=== PATIENT | female | born 1965 | race Caucasian/White ===

== ENCOUNTER 2018-12-02 08:22 | Outpatient (RCR) | payer MEDICAID, SELFPAY | END 2018-12-12 23:59 | LOC: WC 08:22 | PROVIDERS: Family Provider Family Medicine; PCP Family Medicine; Visit Provider Nurse Practitioner Family | DX: Z09 Encounter for follow-up examination after completed treatment for conditions other than malignant neoplasm (principal) ==

== ENCOUNTER 2022-05-02 08:00 | Outpatient (RCR) | payer MEDICARE, SELFPAY ==
--- NOTE | 2022-05-02 09:05 | BH.SGPN.GN ---
Behaviors/Verbalizations/Mental Status: []Eye contact good, casually dressed, motor activity appropriate, speech normal rate and tone, mood depressed and anxious, constricted affect, thoughts linear and intact, no evidence of delusions or hallucinations. Reviewed pt's symptom tracker, pt suicidal ideation within established baseline, denies any plan or intent. Future oriented. Client Response/Progress/Benefit: []Pt first day in IOP tx. She responded well to session, attentive and listening to fellow participants as they processed with the group. Opted not to process with group. Nodding throughout as others shared and appeared to benefit from the supportive structure and encouragement of the group. Recommended continued IOP tx to improve mood stability, increase healthy coping repertoire, and prevent decompensation. Narrative Note: []
--- NOTE | 2022-05-02 10:14 | BH.COMM ---
Communication Note - Communication with Client Communication Note: Met with pt to complete initial paperwork. No significant changes since pre-admission screening. Completed [place] Suicide Screening. Moderate risk. Pt reports having thoughts of killing herself daily within the last month, but denies intent. Pt reports the thoughts are always very brief and pt feels she can control them. No active SI today. Pt has history of two attempts both more than 15 years ago. Therapist did lethal means counseling and discussed the importance of removing any weapons from her home which pt agreed to do. Contracts for safety and reports her aunt is pt's biggest protective factor. Consulted with Dr. Woods with plan to admit to IOP level of care with dx of MDD, recurrent, severe without psychosis F 33.2
--- NOTE | 2022-05-02 10:15 | BH.SGPN.GN ---
Behaviors/Verbalizations/Mental Status: []Pt alert and oriented, casually dressed and groomed. Eye contact good. Motor activity appropriate. Speech within normal limits. Affect flat, mood depressed. Thoughts linear, logical, no signs of hallucinations or delusions. Client Response/Progress/Benefit: []Pt responded well to session AEB taking notes and listening attentively to others. Group discussed the benefits of managed anger and anger as a secondary emotion. Pt often nodding at peers? comments on benefits of anger. ?Pt completed worksheet on anger triggers and personal warning signs of anger. Pt did not share her triggers, but pt was attentive and taking notes. Appeared to benefit from increased knowledge of the anger cycle as well as personal triggers. First day of IOP tx. Will continue IOP tx to prevent decompensation, increase use of healthy coping skills, and maintain safety. Narrative Note: []
--- NOTE | 2022-05-02 11:15 | BH.SGPN.GN ---
Behaviors/Verbalizations/Mental Status: []Client alert and oriented, casually dressed and groomed. Eye contact fair. Motor activity appropriate. Speech within normal limits. Affect constricted, mood depressed. Thoughts linear, logical, no signs of hallucinations or delusions. Client Response/Progress/Benefit: []Pt was engaged throughout AEB contributing to group discussion and self-reflection. Group finished processing cues to anger worksheet. Pt contributed as group brainstormed healthy coping skills for better managing anger which included: music, walking/exercise, changing the environment, communicating with supports, and journaling. Pt reported she would like to work on skills of music and belly breathing to help manage anger responses. Pt appeared to benefit from identifying different techniques to manage anger as well as gaining awareness of potential consequences of unmanaged anger. Will continue IOP tx to increase healthy coping, challenge distorted thoughts, and prevent decompensation.
--- NOTE | 2022-05-03 09:03 | BH.SGPN.GN ---
Behaviors/Verbalizations/Mental Status: []Eye contact poor, casually dressed, motor activity appropriate, speech normal rate and tone, mood depressed and anxious, constricted affect, thoughts linear and intact, no evidence of delusions or hallucinations. Reviewed pt's symptom tracker, suicidal ideation within baseline, pt denies plan, or intent as of this date. Client Response/Progress/Benefit: []Pt passive participant AEB not providing input throughout and appearing anxious. Pt did appear to listen to others check-in. Pt chose to not check-in this morning. Recommended continued IOP tx to increase healthy coping skills, promote anxiety management, as well as prevent decompensation.
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
--- NOTE | 2022-05-03 11:10 | BH.SGPN.GN ---
Behaviors/Verbalizations/Mental Status: []Pt alert and oriented, casually dressed and groomed. Eye contact fair.. Motor activity appropriate. Speech within normal limits. Affect constricted, mood depressed and anxious. Thoughts linear, logical, no signs of hallucinations or delusions Client Response/Progress/Benefit: []Pt responded well to session AEB completing the resilience worksheet provided. Reports belief they already use resilience trait of??self-awareness.? Pt shared these traits will help pt overcome current stressors. Pt stated they would like to continue to develop resilience trait of ?taking care of yourself? 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 Pt seemed to benefit from discussing strategies for improving personal resilience and identifying resilience traits pt already possesses. Pt?s second day of IOP tx. Will continue IOP tx to prevent further decompensation, improve daily functioning, and maintain safety. Narrative Note: []
[2022-05-03 11:29] VITALS: BP 164/71; PULSE 60
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
--- NOTE | 2022-05-03 13:14 | BH.DR.ITP ---
Initial Treatment Plan Patient Information Visit Information: ADMISSION DATE: EXPECTED LOS: 4-6 weeks Problems/Symptoms Problem #1:: Depression Symptom:: Sadness, hopelessness, anhedonia, guilt, low energy, decreased concentration, passive thoughts of , passive to active suicidal ideation Problem #2:: Anxiety Symptom:: Worry, rumination, flashbacks, reexperiencing, avoidance
--- NOTE | 2022-05-08 09:05 | BH.SGPN.GN ---
Behaviors/Verbalizations/Mental Status: []Pt alert and oriented, casually dressed and groomed. Eye contact good. Motor activity appropriate. Speech within normal limits. Affect flat-tearful, mood depressed. Thoughts linear, logical, no signs of hallucinations or delusions. Reviewed pt?s symptom tracker, no risk for suicidal ideation, plan, or intent as of 05/08/22 Client Response/Progress/Benefit: []Pt responded somewhat well to session, attentive, but pt declined to share. Pt reports feeling anxious sharing in group, so pt is still getting used to process group. Pt did seem to connect with peers during their check-ins AEB pt nodding and verbalizing connection. Pt's progress is limited due to pt recently starting IOP and limited engagement, but this is likely to improve as pt gets more comfortable. Pt will continue IOP tx to prevent decompensation, monitor mood, and increase healthy coping skills. Narrative Note: []
--- NOTE | 2022-05-08 10:05 | BH.SGPN.GN ---
Behaviors/Verbalizations/Mental Status: [] Client alert and oriented, casually dressed and groomed. Eye contact good. Motor activity appropriate. Speech within normal limits. Affect congruent, mood euthymic. Thoughts linear, logical, no signs of hallucinations or delusions. Client Response/Progress/Benefit: [] Client responded session by being attentive and taking notes. Client did not share input or reflect with group. Group identified the benefits of change which included: personal growth, positive perspective, increased confidence and better mental health. Worked with the group to identify barriers to change, which included: uncomfortable emotions such as anxiety, lack of awareness, low energy, support system, and negative thinking. Client attentive in activity where they identified and discussed the emotions related to change. Appear to benefit from increased awareness and understanding of emotions, benefits, and barriers related to change. Will continue IOP tx to continue to self confidence, reduce negative thinking patterns, and improve overall functioning. Narrative Note: []
--- NOTE | 2022-05-08 11:13 | BH.SGPN.GN ---
Behaviors/Verbalizations/Mental Status: [] Client alert and oriented, casually dressed and groomed. Eye contact good. Motor activity appropriate. Speech within normal limits. Affect congruent, mood euthymic and depressed. Thoughts linear, logical, no signs of hallucinations or delusions. Client Response/Progress/Benefit: [] Client responded well to session, attentive AEB participating in activity and being attentive/taking notes during discussion. Group processed activity to relate the strategies used to overcome barriers in the activity to managing change in own life. Discussed and set SMART goal in group as it relates to change group members are wanting to make. Client identified she would like to focus on managing her emotions better with minimizing crying. Identified being in the contemplation stage. Client stated her goal is to set time aside to pray each evening before bed. Appeared to benefit from identifying a small goal to work towards. Client will continue IOP tx to prevent decompensation, gain healthy coping skills, and increase emotional regulation skills. Narrative Note: []
--- NOTE | 2022-05-10 09:03 | BH.SGPN.GN ---
Behaviors/Verbalizations/Mental Status: []Pt alert and oriented, casually dressed and groomed. Eye contact good. Motor activity appropriate. Speech within normal limits. Affect flat, mood depressed. Thoughts linear, logical, no signs of hallucinations or delusions. Reviewed pt?s symptom tracker, no risk for suicidal ideation, plan, or intent as of 05/10/22 Client Response/Progress/Benefit: []Pt responded somewhat well to session, tearful, but sharing when prompted. Pt did not share an emotion with the group today, but pt reports she feels thankful for the program. Pt was brief with her check-in but did share a stressor right now is adjusting to her medications. Pt appeared to benefit from connecting with peers and pt is still adjusting to the group environment. Pt will continue IOP tx to prevent decompensation, improve distress tolerance skills, and reduce SI. Narrative Note: []
--- NOTE | 2022-05-10 10:05 | BH.SGPN.GN ---
Behaviors/Verbalizations/Mental Status: [] Client alert and oriented, casually dressed and groomed. Eye contact fair to good. Motor activity appropriate. Speech normal, quiet. Affect constricted, mood depressed and anxious. Thoughts linear, logical, no signs of hallucinations or delusions. Client Response/Progress/Benefit: []Client reports she is still getting adjusted to group environment. Was an engaged participant AEB client listening and taking notes throughout, participated in small group discussion. Attentive during psychoeducation on communication styles. Assisted group with identifying barriers of effective communication which included: assuming, shutting down, dominating the conversation, and using text to communicate. Benefited from increased awareness of different communication barriers, styles, and the importance of communicating effectively to improve mental wellness. Will continue IOP tx to increase overall functioning, increase self-care, and prevent decompensation. Narrative Note: []
--- NOTE | 2022-05-10 11:43 | PCM.BH.PN_ITS ---
Progress Note Progress Note: History of Present Illness/Interim History: Patient is a 56-year-old single female with a history of depression and PTSD who is seen in follow-up at the [facility] behavioral health IOP program. I last saw the patient 1 week ago and at that time Effexor XR was started and doxepin was prescribed for sleep. The patient is tolerating the medication well and has been taking it almost 1 week now. She feels that her sleep is much better at 6 hours a night due to the doxepin. Her mood is still depressed as it is only been 1 week. She does admit that she did empty the bullets out of the gun she owns to make it even less likely that she would ever consider using it although she states she would never kill herself with a gun for reasons stated in the last visit. She is tolerating the Effexor but feels that it may make her legs feel a little weaker. She is still struggling with the complex regional pain syndrome and remains also anhedonic. She also has depressed mood, sadness, hopelessness, worthlessness, low motivation, anhedonia, decreased appetite with some weight loss. Sleep has improved though from 2 to 3 hours overnight to 6 hours overnight. She feels better rested due to this improved sleep. She still has passive thoughts of and passive to active suicidal ideation with no definite plan. She feels still that her moises is protective against suicide. She denies homicidal ideation, hallucinations, delusions or symptoms of john ever. Current Psychiatric Medications: [] Melatonin for sleep and vitamin D. Lyrica and oxycodone for pain only. Takes oxycodone rarely and last took it a month ago. She has been on Effexor XR 37.5 mg daily for 1 week now. And doxepin 10 mg p.o. nightly for sleep (x1 week). Mental Status Examination: [] The patient is a 56-year-old female who is casually dressed and groomed with good hygiene. She has no psychomotor agitation or retardation. History was easier to obtain at this visit and she was much less vague. Eye contact is good and speech is normal rate and rhythm and fluent with no pressure. Patient is cooperative during the interview. Mood is depressed. Affect is constricted and tearful at times. Thought process is goal-directed and organized. Thought content: There remains evidence of passive thoughts of and daily passive and active suicidal ideation with no definite plan. There is no evidence of homicidal ideation, hallucinations, delusions or symptoms of john. Reality testing is intact. Intelligence is above average. Judgment is intact. Insight is fair to good. Diagnoses: [] 1. Major depressive disorder, recurrent, severe without psychosis 2. PTSD 3. Cluster B traits 4. Complex regional pain syndrome and left lower leg 5. Primary support and health issues Plan: [] The patient will continue the IOP program at [facility] as the structure, support, education and group therapy will hopefully prevent worsening of the patient's symptoms which could require hospitalization. She felt safe during the interview and if it anytime she does not feel safe she agrees to let us know or go to the emergency room. The patient's labs were reviewed with her and the TSH and vitamin D and thyroid panel were normal. The patient agrees to increase her Effexor XR to 75 mg p.o. daily. Prescription is sent in for this. She will continue to follow-up with her outpatient providers and I will see the patient in follow-up in 2 weeks. She is also encouraged to cut down on her marijuana use.
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
--- NOTE | 2022-05-11 10:10 | BH.SGPN.GN ---
Behaviors/Verbalizations/Mental Status: [] Eye contact is good. Motor activity is appropriate. Appearance is casual. Speech is Appropriate. Mood is depressed. Affect is congruent. Thoughts are linear and logical. No evidence of psychosis. Client Response/Progress/Benefit: [] Pt participated at times during group discussions. Attentive during psychoeducation. Attentive as peers shared their insights on the definition of anxiety. Along with peers worked together to identify the benefits of anxiety which included; motivates us, helps us prepare, helps us change and grow, helps us identify danger and can keep us safe. Attentive during discussion on how anxiety impacts one physically (increased heart rate, sweaty hands, etc), cognitively (poor concentration, fogginess, catastrophizing, etc), and behaviorally (avoidance, anger, safety behaviors, etc). Completed worksheet on how anxiety impacts her physically, cognitively, and behaviorally. Benefited from increase insight into anxiety's benefits and detriments. Will continue in IOP to maintain safety, prevent decompensation, increase healthy coping skills, and to improve functioning. Narrative Note: []
--- NOTE | 2022-05-11 11:15 | BH.SGPN.GN ---
Behaviors/Verbalizations/Mental Status: []Pt alert and oriented, casually dressed and groomed. Eye contact good. Motor activity appropriate. Speech within normal limits. Affect constricted, mood anxious and depressed. Thoughts linear, logical, no signs of hallucinations or delusions. Client Response/Progress/Benefit: []Pt was a semi-active participant in group discussion AEB remaining mostly passive in discussion but taking notes throughout group and listening attentively to others. Attentive during psychoeducation on mindfulness and ways to utilize mindfulness techniques to improve anxiety management. The group practiced guided meditation during session. Engaged and attentive during group brainstorm of healthy anxiety reduction skills. Appeared to benefit from practicing in the moment coping skills and increasing repertoire of anxiety management skills. Pt selected wanting to work on using skills of music and belly breathing more consistently. Pt will continue IOP tx to promote continued use of healthy coping skills, further improve communication with supports, and prevent decompensation. Narrative Note: []
== END 2022-05-12 23:59 ==
LOC: BHIOP 08:00
PROVIDERS: PCP Family Medicine; Referring Provider Psychiatry & Neurology Psychiatry; Visit Provider Psychiatry & Neurology Psychiatry
DX: F33.2 Major depressive disorder, recurrent severe without psychotic features (principal); F43.10 Post-traumatic stress disorder, unspecified; G90.522 Complex regional pain syndrome I of left lower limb; Z79.899 Other long term (current) drug therapy
CPT/HCPCS: S9480; 90834; 90853

== ENCOUNTER → 2022-05-03 | Outpatient (CLI) | payer MEDICARE, SELFPAY ==
[2022-05-03 13:14] LABS: Free T3 2.7 pg/mL (2.18-3.98); T4 Free Direct 0.93 ng/dL (0.76-1.46); T4 Total, Thyroxin 8.6 ug/dL (4.8-13.9)
== END | disposition home or self-care (01) ==
LOC: LAB 12:15
PROVIDERS: PCP Family Medicine; Referring Provider Psychiatry & Neurology Psychiatry; Visit Provider Psychiatry & Neurology Psychiatry
DX: Z09 Encounter for follow-up examination after completed treatment for conditions other than malignant neoplasm (principal); E55.9 Vitamin D deficiency, unspecified
CPT/HCPCS: 36415; 82306; 84436; 84439; 84443; 84481

== ENCOUNTER 2022-05-15 08:20 | Outpatient (RCR) | payer OTHER, SELFPAY ==
[2022-05-13 02:22] VITALS: BP 164/71; PULSE 60
--- NOTE | 2022-05-15 09:00 | BH.SGPN.GN ---
Behaviors/Verbalizations/Mental Status: [] Eye contact poor. Motor activity appropriate. Speech within normal limits. Affect constricted, mood dysthymic. Thoughts linear, logical, no signs of hallucinations or delusions. Reviewed client?s symptom tracker, no risk for suicidal ideation, plan, or intent. Client Response/Progress/Benefit: [] Client responded well to session, attentive and listening to fellow participants as they processed with the group. Client shared mental health win as not crying yesterday which she stated was the first time in awhile. Client stated she thinks the medication is starting to help her with feeling less emotional and not having uncontrollable crying. Client noted continued stressor as caring for her aunt. Seemed to benefit from support from peers. Recommended continued IOP tx to increase healthy coping, challenge distortions, and prevent decompensation.
--- NOTE | 2022-05-15 10:10 | BH.SGPN.GN ---
Behaviors/Verbalizations/Mental Status: []Pt alert and oriented, casually dressed and groomed. Eye contact poor-head down at times. Motor activity appropriate. Speech within normal limits. Affect flat, mood depressed. Thoughts linear, logical, no signs of hallucinations or delusions. Client Response/Progress/Benefit: []Pt receptive to session AEB taking notes and completing the worksheet. Worked with group to brainstorm the positive and negative aspects of stress on physical and mental health. Group did well to identify the benefits of stress as well as the impact of distress on performance, relationships, and mental health. Pt identified their personal top stressors as: taking care of her aunt, dealing with her neighbor who is disrespectful, and managing her mental health. Pt reports when the stress overflows, pt reacts with crying, self-harming, and urges to use. Pt seemed to benefit from increased awareness of current stressors and impact stress has on mental health. Recommended to continue IOP tx to prevent decompensation, improve distress tolerance skills, and gain social support. ?? Narrative Note: []
--- NOTE | 2022-05-15 11:00 | BH.SGPN.GN ---
Behaviors/Verbalizations/Mental Status: [] Eye contact is good. Motor activity is appropriate. Appearance is casual. Speech is Appropriate. Mood is depressed/irritable. Affect is congruent. Thoughts are linear and logical. No evidence of psychosis. Client Response/Progress/Benefit: [] Pt participated at times during group discussions and experiential activity. Attentive during psychoeducation on the 4 A's (Avoid, adapt, alter, accept) of coping with stress as well as strategies to identify stressors in which one has no control, little control, or a great deal of control over. Shared that he would benefit most from working on adapt and accept in regards to the 4 A's of coping with stress. Was able to identify the connection between the experimental activity and utilization of stress management skills. Benefited from increased awareness of stress management strategies. Will continue in IOP to maintain safety, prevent decompensation, and to improve functioning. Narrative Note: []
--- NOTE | 2022-05-17 09:00 | BH.SGPN.GN ---
Behaviors/Verbalizations/Mental Status: []Eye contact good, casually dressed, motor activity appropriate, speech normal rate and tone, mood euthymic, congruent affect, thoughts linear and intact, no evidence of delusions or hallucinations. Reviewed pt's symptom tracker, pt suicidal ideation within established baseline, denies any plan or intent. Future oriented. Pt will connect with IOP therapist today as well. Client Response/Progress/Benefit: []Pt responded well to session, attentive and willing to process with group which is progress as pt struggles with connecting with others and social anxiety. Identified current mental health win as gaining some psychoeducation on caregiver burnout, noting she connects with several of the common sx. Pt reflected that the knowledge had been helpful, but is also a stressor as she does not have much support to aid in caregiving for her aunt. Receptive of suggestions provided by the group and ways to increase self-care. Additional win noted as a reduction in crying spells which she attributes to medication changes. Pt appeared to benefit from group support and encouragement. Continues to display progress in engagement in group and willingness to try applying skills learned in tx. Recommended continued IOP tx to continue to improve self-care, reduce isolation, as well as prevent decompensation. Narrative Note: []
--- NOTE | 2022-05-17 10:10 | BH.SGPN.GN ---
Behaviors/Verbalizations/Mental Status: [] Eye contact is good. Motor activity is appropriate. Appearance is casual. Speech is Appropriate. Mood is depressed/irritable. Affect is congruent. Thoughts are linear and logical. No evidence of psychosis. Client Response/Progress/Benefit: [] Pt was an active participant in group discussion. Attentive during psychoeducation on the CBT [place] (Thoughts, Behaviors, Emotions). Engaged in small group session in which members identified common thoughts, emotions, and actions associated with an event associated with social anxiety. Completed worksheet in which pt identified a thought that is keeping him stuck or is in obstacle to increased mental wellness. The thought that pt identified was I'm alone. Pt got tearful [facility] though group and stated I just have to go home. Another program therapist talked with pt and completed an individual session to further address her triggers and functioing. Benefited from increased awareness of the basis of CBT therapy as well as thoughts are impacting pt' progress. Will continue in IOP to maintain safety, prevent decompensation, and to increase healthy coping skills. Narrative Note: []
--- NOTE | 2022-05-17 11:10 | BH.SGPN.GN ---
Behaviors/Verbalizations/Mental Status: []Pt alert and oriented, casually dressed and groomed. Eye contact fair. Motor activity appropriate. Speech within normal limits. Affect congruent, mood depressed. Thoughts linear, logical, no signs of hallucinations or delusions. Client Response/Progress/Benefit: []Pt responded well to session, contributing to discussion when prompted, and attentive throughout discussion. Pt identified a negative thought that has kept them stuck. Pt's thought was I?m alone. Pt reported when they think this way, they isolate and convinces herself that she will always be alone. Pt worked to reframe the thought by finding more rational, realistic ways to look at the thoughts and then processed within group setting. Pt reframed the thought to ?I?m not alone at IOP.? Pt shared she struggles to believe this and pt worries about what will happen when she graduates from IOP. Pt appeared to benefit from practicing challenging negative thinking. Pt will continue IOP tx to prevent decompensation, increase distress tolerance skills, and maintain safety. ? Narrative Note: []
--- NOTE | 2022-05-17 12:12 | BH.MDN_ITS ---
Multi-Disciplinary Note - Note 30-min Individual Time Started:: 10:30 Date: 05/17/22 Purpose of session/treatment goals addressed:: Pt got tearful during 2nd group when discussed her support/social network and states I just have to go. She got up and walked towards the exit. Pt was agreeable to talk with this therapist to process before she left. Eye Contact:: Good Motor Activity:: Appropriate Appearance:: Casual Speech:: Appropriate Mood:: Anxious, Depressed Affect:: Flat Thoughts:: Linear, Logical Staff Interventions:: completed risk assessment / safety planning, other - allowed pt to vent her distress which was beneficial. Client Response:: Pt states that she felt overwhelmed and anxious during group stating I don't feel like anyone in my social group is my age ? I pull everyone into my emotional blackhole. Unclear what group activity, topic, or comment triggered her negative thoughts. Pt discussed feeling burned out and isolated. Has struggled to maintain consistent social relationships. Believes that she overwhelms others with her struggles, emotions, and problems. Insight on this and how improved communication skills could be beneficial ( knowing what to share, when she is oversharing, and strategies to maintain relationships). She reports being overwhelmed with her caregiver role and appears to spend all day/every day with her aunt. Her only respite is IOP stating I love the 3 hours I get to be away and work on myself. Aunt is also a trigger at times as she is very high strung and remains patient of previous trauma. Pt met with her aunt's early morning babysitter yesterday who suggested AL or NH, however pt does not want to pursue this option. We explored this briefly however session focused on increasing respite and self-care which pt agreed would be helpful. Challenged stigma/myths about self-care and provided education on it's role in wellness. Pt identified self-care options and agreed to research additional ways to get respite. Pt reported feeling much better after processing with therapist and requested to return to group rather than head home. Risks/Concerns:: Pt denies any active suicidal ideations, plan, or intent of as 05/17/22. Reports daily fleeting thoughts of ; however, denies any active plan or intent. Reports her and her moises as primary protective factors. Pt shared she is not sure she would go to [facility] if she completed suicide which prevents her from doing so. These daily fleeting thoughts of appear to be her baseline for the past several months. No acute changes in frequency, intensity, or severity of these thoughts in the past 24 hours. Progress Toward Goals/Plan:: Pt requested to return to group. Benefited from space to process and reframe overwhelming thoughts. Responded well to counseling interventions. She mentioned several times that IOP has been helpful not only for learning skills but also for respite from caregiving roles as well as support/social aspects. In the moment today was overwhelmed and require assistance and guidance to use coping skills, which ultimately proved beneficial. Will continue in IOP to maintain safety, increase healthy coping skills, and to stabilize mood. Time Stopped:: 11:00
--- NOTE | 2022-05-19 15:37 | BH.MDN_ITS ---
Multi-Disciplinary Note - Note 60-min Individual Time Started:: 08:32 Date: 05/19/22 Purpose of session/treatment goals addressed:: Purpose of session was to discuss treatment plan goal #1, including a discussion on Caregiver fatigue/burnout. Eye Contact:: Good Motor Activity:: Appropriate Appearance:: Casual Speech:: Appropriate, Soft Mood:: Anxious, Depressed Affect:: Congruent Thoughts:: Linear, Logical, No evidence of hallucinations/delusions noted Staff Interventions:: thought challenging, motivational interviewing, psychoeducation on: - self-care and caregiver fatigue, goal setting Client Response:: Pt receptive of arriving early for groups today to meet with therapist. Shared she has not yet been to bed as she has been experiencing increased difficulties with falling asleep. Shared spending much of the night [place] t[place] in bed thinking, which then impacts her mood and makes it harder to self- regulate when caregiving for her aunt. Pt discussed a recent conversation with a home health geriatric social worker who suggested pt may be experiencing caregiver burnout/fatigue. Pt reports connecting with this and feeling as though the past year of caregiving for her aunt has been more difficult than ever before. Discussed feeling more triggered by the type of care she is required to provide her aunt as it often triggers past trauma but feels obligated to do so. Expressed that since beginning IOP tx she has been making progress with establishing firmer boundaries with her aunt and feeling less pressed to do every task for her. Noted the geriatric social worker had presented the option of placing her aunt in an assisted living home; however, pt is adamantly opposed to this. Did however agree that she has felt less depressed since spending less time in the home while attending tx. Receptive of discussion on ways to continue to incorporate time for self-care outside of the home when not attending IOP tx. Pt shared she has wanted to attend a local open-sarah performance in her area, as well as been considering spending more time outdoors. Encouraged to engage in one of these activities this weekend. Shared some guilt about leaving her aunt to do so but was able to recognize the importance of caring for herself to be a more effective caregiver for her aunt. Shared additionally wanting to work on ways to have more appropriate conversations with others as she feels she often ?trauma dumps? due to not knowing what to talk about. Discussed how this has influenced her ability to make strong social connections in the past and feels working on interpersonal communication would also aid in improving overall emotional wellness. Pt reported wanting ot return home following session to rest. Risks/Concerns:: Pt denies any active suicidal ideations, plan, or intent of as 05/19/22. Reports daily fleeting thoughts of ; however, denies any active plan or intent. Future oriented and protective factors noted. Progress Toward Goals/Plan:: Progress noted AEB pt reports of improved willingness to take time for herself and begin practicing self-care. Additional progress noted in pt report of fewer crying spells and improved ability to set boundaries without guilt when caring for her aunt. Continues to report struggling with significant negative core beliefs, depression, and social anxiety. However, continues to report receptivity to applying skills she is learning in IOP tx and openness to challenging her perspective. Will continue in IOP to maintain safety, increase healthy coping skills, and to stabilize mood.
--- NOTE | 2022-05-22 09:05 | BH.SGPN.GN ---
Behaviors/Verbalizations/Mental Status: [] Eye contact good. Motor activity appropriate. Speech within normal limits. Affect constricted, mood anxious and depressed. Thoughts linear, logical, no signs of hallucinations or delusions.Reviewed client's symptom tracker, pt suicidal ideation within established baseline, denies any plan or intent as of 05/22/2022. Client Response/Progress/Benefit: [] Client responded to session, attentive and willing to process with group. Client tearful and was brief when sharing current mental health wins and stressor. Shared wins of being in recovery and still participating in program. Current stressor noted as feeling tired and drained. Client appeared to benefit from group support and encouragement. Recommended continued IOP tx to continue to improve use of coping skills, promote mood stability, as well as prevent decompensation. Narrative Note: []
--- NOTE | 2022-05-22 10:10 | BH.SGPN.GN ---
Behaviors/Verbalizations/Mental Status: [] Eye contact is good. Motor activity is appropriate. Appearance is casual. Speech is Appropriate. Mood is depressed/anxious. Affect is congruent. Thoughts are linear and logical. No evidence of psychosis. Client Response/Progress/Benefit: [] Pt participated at times during the group discussion. Attentive during psychoeducation on fixed mindset. Participated at times during interactive discussions in which group worked together to define 'fixed mindset'. Descriptors identified included; only one way of seeing things, absolute thinking, not compromising, and believing that nothing could change. Participated in further discussion on the negatives that result from a 'fixed' mindset which are; emotional dysregulation, decreased confidence in oneself, feeling 'stuck', feelings of worthlessness, hopelessness, and 'giving up'. Benefited from increased understanding of 'fixed' mindset and its impact on mental health. Will continue in IOP to maintain safety, increase healthy coping skills, and to [place] mood. Narrative Note: []
--- NOTE | 2022-05-22 11:10 | BH.SGPN.GN ---
Behaviors/Verbalizations/Mental Status: []Pt alert and oriented, casually dressed and groomed. Eye contact good. Motor activity appropriate. Speech within normal limits. Affect congruent, mood depressed. Thoughts linear, logical, no signs of hallucinations or delusions. Client Response/Progress/Benefit: []Pt engaged during activity and discussion AEB providing some input, connecting with peers, as well as taking notes throughout. Pt did well to engage as group worked on identifying characteristics and benefits of adopting a growth mindset. Worked with fellow participants in reframing the example fixed thoughts into growth mindset thoughts. Reframed personal fixed thought of ?I will never be able to grow up emotionally? with growth mindset thought of ?I can try and learn.? Benefitted from discussing benefits of growth mindset and brainstorming strategies for prompting growth-mindset. Pt did well in small group to challenge own thoughts and help peers. Pt continues to struggle with identifying and combating negative self-talk. Pt will continue IOP tx to prevent decompensation, improve self-confidence, and improve overall functioning. ? Narrative Note: []
--- NOTE | 2022-05-24 10:10 | BH.SGPN.GN ---
Behaviors/Verbalizations/Mental Status: []Pt alert and oriented, casually dressed and groomed. Eye contact good. Motor activity appropriate. Speech within normal limits. Affect flat, mood dysthymic. Thoughts linear, logical, no signs of hallucinations or delusions. Client Response/Progress/Benefit: []Pt was an active participant in group discussion and activity. Attentive during psychoeducation. Along with peers was able to identify barriers to taking action. Identified several symptoms and stressors that she feels are holding her back from progress such as social anxiety and negative core beliefs. Stated these things have kept pt from making connections. Benefited from increased self-awareness of obstacles. Will continue IOP tx to prevent decompensation, maintain safety, and gain healthy coping skills. Narrative Note: []
--- NOTE | 2022-05-24 11:10 | BH.SGPN.GN ---
Behaviors/Verbalizations/Mental Status: []Client alert and oriented, casually dressed and groomed. Eye contact good. Motor activity appropriate. Speech within normal limits. Affect congruent, mood anxious and depressed. Thoughts linear, logical, no signs of hallucinations or delusions. Client Response/Progress/Benefit: []Client responded well to session, taking notes and participating in worksheet discussion. Client connected with the zones of action/change and that making sustainable change comes from stepping out of one?s comfort zone into the learning zone. Client set a goal to gain control over feeling like a burden. Client worked with group to create a goal and identify supports that would aid in reducing the control fear of judgement has over her; however, opted not to share aloud. Pt additionally left group a few minutes early to meet with psychiatry. Appeared to benefit from identifying a small goal to benefit mental health. Will continue IOP tx to increase healthy coping, promote mood stability, and prevent decompensation. Narrative Note: []
--- NOTE | 2022-05-24 12:03 | PCM.BH.PN_ITS ---
Progress Note Progress Note: And history of Present Illness/Interim History: The patient is a 56-year-old single female with a history of depression and PTSD who is seen in follow-up at the [facility] behavioral health IOP program. I last saw the patient about 2 weeks ago and at that time the Effexor XR was increased to 75 mg p.o. daily. The patient states she has cut down on her marijuana use somewhat as she was encouraged to do at the last appointment. She is sleeping much better at about 6 hours a night but she feels that the doxepin, although it has helped her sleep better, has possibly caused urinary retention. She states she tends to get urinary retention on some medications. During the interview she w as a somewhat mildly inconsistent and misleading historian and that she would make unusual statements in response to questions such as are you thinking about suicide. In response that question the patient stated well I think the drug is doing that. When questioned further the patient states she feels that smoking marijuana and coughing a lot leads her to believe that she is trying to kill her self long-term. She denied any current suicidal ideation. She denied passive thoughts of because she wants to be present to take care of her aunt. Her sleep has improved at 6 hours a night but then later in the interview she said there are some nights she does not sleep. She is crying less often than she used to but she states she feels somewhat numb and and she states that she is unable to play music well now because there is no feeling in her music when she takes the Effexor. Despite this she is continuing to take it. Energy level is okay during the day. She still has issues with her complex regional pain syndrome. The patient remains depressed with only occasional hopelessness now. Occasional worthlessness and low motivation. She denies suicidal ideation, homicidal ideation, hallucinations, or delusions. Current Psychiatric Medications: [] Effexor XR 75 mg p.o. daily (x2 weeks); doxepin 10 mg p.o. nightly (x3 weeks); melatonin for sleep; Lyrica for pain. Mental Status Examination: [] The patient is a 56-year-old female who appears mildly disheveled but casually dressed and groomed with fair hygiene. She has no psychomotor agitation or retardation. Eye contact is good and speech is normal rate and rhythm and fluent with no pressure. Patient is cooperative during the interview apparently but gives somewhat misleading answers at times. Mood is depressed. Affect is constricted. Thought process is goal-directed and organized. Thought content: There is no evidence of passive thoughts of , suicidal ideation, homicidal ideation, plan for suicide, hallucinations or delusions. Reality testing is intact. Intelligence is above average. Judgment is intact. Insight is fair to good. Diagnoses: [] 1. Major depressive disorder, recurrent, severe without psychosis 2. PTSD 3. Cluster B traits 4. Complex regional pain syndrome and left lower leg 5. Primary support and health issues Plan: [] The patient will continue the IOP program at [facility] as a support, structure, education and group therapy will hopefully prevent worsening of the patient's symptoms which could require hospitalization. She felt safe during the interview and if it anytime she does not feel safe she will let us let us know or go to the emergency room. The patient agrees to stop doxepin for a week or so and see if her urinary retention resolves. If it does we could see if she could afford the lower dose doxepin at 3 or 5 mg but we will wait to see if the retention is caused by the doxepin and if it resolves when she stops it. In addition Wellbutrin XL 150 mg p.o. every morning is added to help with her depression and possibly decrease her emotional blunting and help with her motivation. She will continue to try to cut down her marijuana use. She will continue to follow-up with her outpatient providers and I will see the patient in follow-up in 2 weeks.
--- NOTE | 2022-05-24 13:47 | BH.MDN ---
Multi-Disciplinary Note - Note 45-min Individual Time Started:: 09:10 Date: 05/24/22 Purpose of session/treatment goals addressed:: Purpose of session was to address treatment plan goal #1 and 2, review self-care homework. Eye Contact:: Fair Motor Activity:: Appropriate Appearance:: Casual Speech:: Appropriate, Soft Mood:: Anxious, Depressed Affect:: Congruent Thoughts:: Linear, Logical, No evidence of hallucinations/delusions noted Staff Interventions:: thought challenging, psychoeducation on: - distress tolerance, Reviewed ACEs information, CBT techniques, strengths perspective Client Response:: Pt engaged in session, openly discussed current stressors and worked with therapist to process associated thoughts and emotions. Pt shared experiencing increased depression and crying much of the previous date due to receiving news that a friend had been diagnosed with lung cancer. Pt shared beliefs that this news had also triggered a trauma response as pt?s mother had of lung cancer as well. Pt went on to explain struggling with feeling the stressor was out of her control and guilt that she could not help her friend. Insight that her trauma results in ?extreme responses? at times and pt described picking up a hitch hiker yesterday as well. Noted beliefs that this allowed her to feel she was able to do something positive for someone else. Reports later recognizing the potential danger in the situation afterwards. Shared that she has done something similar in the past when acting in service of others, however it resulted in pt being in a potentially dangerous and traumatic situation. Pt shared ?I don?t know why I do this? and expressed a desire to develop healthier means of responding to trauma triggers. Identified a desire to reduce her reliance on marijuana as a coping mechanism as well, citing the Vijaya Nunes talk on Adverse Childhood experiences as inspiration. Pt and therapist had a long discussion reviewing the importance of continuing to check-in with herself when experiencing major stressors to identify her desired response and ask herself, ?Is this healthy??, ?Could this potentially be dangerous??, and ?What other ways could I cope with my emotions??. Reviewed the importance of self-care in improving overall ability to manage emotions and ability to cope with distress. Although pt is able to rationally identify benefits of self-care, pt continues to express reluctance to engage in self-care activities that do not ?serve others? as pt struggles with internalized guilt and feelings of not being worthy of doing so. Risks/Concerns:: Pt denies any active suicidal ideations, plan, or intent of as 06/04. Reports daily fleeting thoughts of ; however, denies any active plan or intent. Future oriented and protective factors noted. Progress Toward Goals/Plan:: Pt progress continues to be variable. Pt reports finding the groups to be helpful and is enjoying the material she is learning, Pt has significant negative core beliefs and past trauma impacting her ability to engage in self-care or feel able to advocate for her own needs. Pt continues to report ongoing sx of PTSD, depression, and anxiety. Recent stressor related to a friend's medical diagnosis resulted in pt experiencing increase in trauma triggers which may be impacting her progress as well. Will continue in IOP to maintain safety, increase healthy coping skills, and to stabilize mood. Time Stopped:: 09:55
--- NOTE | 2022-05-24 13:47 | BH.TPR ---
Treatment Plan Review Date of Admission:: 05/02/22 Date of Treatment Plan Review:: 05/24/22 Admitting Diagnoses:: 1. Major depressive disorder, recurrent, severe without psychosis. 2. PTSD Current Diagnoses:: 1. Major depressive disorder, recurrent, severe without psychosis. 2. PTSD Patient's Response to Treatment:: Attends treatment consistently. She is engaged in treatment and reports completing all homework outside of group. She does self-report struggling with social anxiety and is taking steps in group to challenge herself to step outside her comfort zone and engage in more active group discussion. Pt struggles with social skills and sharing information at times in group settings which has impacted her ability to make connections and reinforced social anxiety. Pt reports some progress since entering [facility], specifically in willingness to have an open mindset and challenge her perspective. Status of Current Problems and Symptoms: Pt completed DSM outcome measurement which showed an overall 11% symptom reduction. Anger domain has seen a 100% reduction, depression reduced by 12.5%, and thoughts of hurting herself have reduced by 25%. Anxiety and OCD domains have remained the same. Reports improved ability to set boundaries with her aunt and would like to continue to improve this. Reports decreased crying spells and improved sense of support since beginning the [facility] tx program. Pt does report opposition to self-care and working on improving her self-confidence and self-love, indicating this does not align with her moises as she feels her sole purpose is to serve others. This may be a reason for limited progress noted on outcomes measurement. Problem #1 Problem Name:: Depression, hopelessness, guilt, passive thoughts of Status of Goals:: Objective 1 & 2- In progress with ongoing work encouraged. Pt?s DSM-5 scores for depression decreased by 12.5% since admission. Pt reports finding the group setting and connecting with others more to be helpful, however continues to struggle significantly with self-care and applying self-compassionate statements which may be preventing additional progress. Is able to identify several distorted thought patterns and negative core beliefs but has difficulties with willingness to challenge and replace these due to the ingrained nature of these beliefs. Pt does report reduced crying spells and suicidal ideations. Team Recommendations:: Treatment tx encourages pt to continue working on this tx goal as pt has made progress, but can continue to improve self-compassion, self-care and challenge distortions. Pt is also indicating a desire to begin working on reaching out to supports and making more social connections. Problem #2 Problem Name:: Anxiety, flashbacks, reexperiencing, rumination Status of Goals:: Objective 1- not complete. Pt is actively working on identifying and learning healthier means of coping with her trauma responses. Pt can identify triggers and has learned coping skills to manage her anxiety. Objective 2- in progress. Pt has been working on identifying healthy means of interacting with others and avoiding oversharing her trauma during IOP sessions, though struggles with isolation and challenging herself to do this outside of IOP. Team Recommendations:: Treatment tx encourages pt to continue working on this treatment goal to further reduce avoidance, increase self-confidence and mastery, and gain healthy support.
--- NOTE | 2022-05-26 09:00 | BH.SGPN.GN ---
Behaviors/Verbalizations/Mental Status: []Pt alert and oriented, casually dressed and groomed. Eye contact fair. Motor activity appropriate. Speech within normal limits. Affect congruent, mood depressed. Thoughts linear, logical, no signs of hallucinations or delusions. Reviewed pt?s symptom tracker, no risk for suicidal ideation, plan, or intent as of 05/26/22. Pt's scores are within her baseline. Client Response/Progress/Benefit: []Pt responded somewhat well to session, quiet, but participating when prompted. Pt declined to go into detail during her check-in, but pt reports she is feeling blunted this morning. Pt shared she is struggling to adjust to her medications as pt identifies as a creative individual and pt feels the medication impacts this. Pt's mental health win today is that she is still coming to IOP tx and I'm still alive. pt appeared to benefit from connecting with peers and gaining emotional support. Pt will continue IOP tx to prevent decompensation, maintain safety, and gain social support. Narrative Note: []
--- NOTE | 2022-05-26 10:00 | BH.SGPN.GN ---
Behaviors/Verbalizations/Mental Status: [] Eye contact is good. Motor activity is appropriate. Appearance is casual. Speech is Appropriate. Mood is anxious. Affect is congruent. Thoughts are linear and logical. No evidence of psychosis. Client Response/Progress/Benefit: [] Pt participated at times during the group discussions. Engaged in experiential activity. Attentive during psychoeducation. Participated during interactive discussions on unhealthy ways to manage emotions which included; substance abuse, self-harm, risky behaviors, isolation, lashing out at others, or sleeping excessively. Pt and peers identified consequences to unhealthy coping skills which included; relationship conflict, senior living, hospitalization, rehab, shame, guilt, loss of job, etc. Group participated in discussion on the impact that intense emotions can have on communication which included; verbal vomit, not communicating effectively, resentments, over-sharing, dishonesty, yelling, anger outbursts, and relationship struggles. Engaged in experiential activity and able to relate activity to psychoeducation. Benefited from increased awareness of how the impact that emotions can have on communication. Will continue in IOP to maintain safety, prevent decompensation/re-admission, and to increase healthy coping skills. Narrative Note: []
--- NOTE | 2022-05-26 11:10 | BH.SGPN.GN ---
Behaviors/Verbalizations/Mental Status: []Client alert and oriented, casually dressed and groomed. Eye contact fair. Motor activity appropriate. Speech within normal limits. Affect congruent, mood euthymic. Thoughts linear, logical, no signs of hallucinations or delusions. Client Response/Progress/Benefit: []Client engaged in session AEB client listening attentively to peers and providing input. Attentive during psychoeducation on 4 zones of regulation. Client able to identify feelings and behaviors for each zone. Client identified coping skills one can use to support self in each zone. Client reports she can benefit from practicing playing music, identifying two mental health wins daily, and goal setting. Benefited from increased education on zones of regulation or stages of alertness for emotions and healthy coping skills to use for each zone. Will continue IOP tx to challenge distorted thoughts, increase use of healthy coping skills, and prevent decompensation.
--- NOTE | 2022-05-30 09:05 | BH.SGPN.GN ---
Behaviors/Verbalizations/Mental Status: []Eye contact good, casually dressed, motor activity appropriate, speech normal rate and tone, mood euthymic and anxious, congruent affect, thoughts linear and intact, no evidence of delusions or hallucinations. Reviewed pt's symptom tracker, pt suicidal ideation within established baseline, denies any plan or intent. Future oriented. Client Response/Progress/Benefit: []Pt responded well to session, attentive and willing to process with group. Identified current mental health wins as allowing herself to practice self-care and take time to lay in a hammock on Sunday. Shared having to overcome feeling she did not deserve to do so. Additional win noted as beginning to restring her guitar which is an important aspect of promoting self-care for pt as she find music to be a major benefit to her mental health. Current stressor identified as feeling foggy and ?stunned? which has impacted willingness to get out of bed over the weekend. Shared concerns this may be medication related. Appeared to benefit from supportive group environment and progress noted in improved mood and willingness to practice self-care. Recommended continued IOP tx to further to improve healthy coping, promote mood stability, as well as prevent decompensation. Narrative Note: []
--- NOTE | 2022-05-30 10:10 | BH.SGPN.GN ---
Behaviors/Verbalizations/Mental Status: []Pt alert and oriented, casually dressed and groomed. Eye contact good. Motor activity appropriate. Speech within normal limits. Affect congruent, mood agitated. Thoughts linear, logical, no signs of hallucinations or delusions. Client Response/Progress/Benefit: []Pt was an active participant in group discussions and activities. Attentive during psychoeducation. Pt engaged during interactive discussion in which the group defined self-care and discussed its benefits. ?Worked with peers in a small group to identify myths related to self-care which included; Self-care is expensive, self-care is selfish, not everyone deserves self-care, self-care means a person is weak, and self-care takes up too much time. Pt shared how she was treated growing up made pt believe that she is ?just unworthy? of taking care of herself. Pt participated in small groups where they worked to bust these self-care myths. Benefited from increased awareness of self-care, its benefits, and the consequences of not utilizing self-care strategies. Will continue IOP tx to prevent decompensation and increase healthy coping skills. Narrative Note: []
--- NOTE | 2022-05-30 11:10 | BH.SGPN.GN ---
Behaviors/Verbalizations/Mental Status: []Pt alert and oriented, casually dressed and groomed. Eye contact fair. Motor activity appropriate. Speech within normal limits. Affect congruent, mood euthymic. Thoughts linear, logical, no signs of hallucinations or delusions. Client Response/Progress/Benefit: []Pt engaged participant AEB completing self-assessment worksheet and providing input throughout discussion. Participated in group discussion on the various areas of self-care. Pt completed worksheet identifying current self-care practices and what self-care activities pt wants to start using. Pt selected financial self-care to begin practicing more consistently. Pt plans to do this by surrendering her paypal account and being more mindful of her spending. Appeared to benefit from completing the self-care evaluation and gaining insights into current self-care practices, as well as identifying areas in which pt ?would like to improve upon.?Pt to continue IOP to continue use of healthy coping, improve self-esteem, and prevent decompensation.
--- NOTE | 2022-05-30 15:02 | BH.MDN ---
Multi-Disciplinary Note - Note 30-min Individual Time Started:: 12:16 Date: 05/30/22 Purpose of session/treatment goals addressed:: Purpose of session was to address treatment plan goal #1. Began discharge planning. Eye Contact:: Good Motor Activity:: Appropriate Appearance:: Casual Speech:: Appropriate Mood:: Euthymic, Anxious Affect:: Congruent Thoughts:: Linear, Logical, No evidence of hallucinations/delusions noted Staff Interventions:: motivational interviewing, CBT techniques, strengths perspective, goal setting - pt identified several small self-care goals for herself Client Response:: Pt arrived to session bright and making jokes, which is significantly outside her usual baseline. Reports that despite having a difficult weekend, she has made the decision to begin more actively challenging herself to be open in the tx environment and begin ?stepping into change?. Shared that today?s group topic of ?self-care? had been difficult for her, reflecting that her trauma hx has made it difficult to believe she deserves to care for herself. Noted that moises and stewardship towards others are important values of hers and she is beginning to accept that not caring for herself will impede her ability to care for others. Shared she has already taken steps to challenge herself to lay outside in the hammock, and that although this had been very difficult to do she plans to continue to spend time practicing grounding and laying in the hammock. Went on to report wanting to work on the self-care areas of better managing her finances, re-engaging in activities she has found enjoyable in the past, addressing physical health issues, as well as improving social supports. Remainder of session spent identifying small goals to work on improving these self-care areas. Pt identified giving up use of her [employer] account, restringing her guitar, finding a new primary care physician, and looking into a local concert band in her hometown. Shared plans to bring her guitar to group tomorrow to play a song as a means of holding herself accountable for following through with this goal. Risks/Concerns:: Pt denies any active suicidal ideations, plan, or intent of as 05/30/22. Reports daily fleeting thoughts of ; however, denies any active plan or intent. Future oriented and protective factors noted. Progress Toward Goals/Plan:: Pt progress continues to be variable. Pt reports making strides in completing a small self-care task over the weekend; however, struggled with getting out of bed much of the remainder of the weekend. Shared feeling this was less due to depressive sx and more associated with recent medication changes. Feels medications are helping but she is having several side effects impacting her functioning. Pt requested to follow-up with psychiatry and this therapist will work with tx team to address medication concerns with appropriate staff. Pt reports improved mood and motivation today, however continues to have intrusive thoughts of and significant negative core beliefs often impeding progress. Denies intrusive thoughts as being active SI in nature, denies plan, denies intent. Aware of crisis resources available and will reach out if needed. Will continue in IOP to maintain safety, increase healthy coping skills, and to stabilize mood as pt connects with outpatient providers. Time Stopped:: 12:48
--- NOTE | 2022-05-31 09:05 | BH.SGPN.GN ---
Behaviors/Verbalizations/Mental Status: []Eye contact good, casually dressed, motor activity appropriate, speech normal rate and tone, mood euthymic and anxious, congruent affect, thoughts linear and intact, no evidence of delusions or hallucinations. Reviewed pt's symptom tracker, pt suicidal ideation within established baseline, denies any plan or intent. Future oriented. Client Response/Progress/Benefit: []Pt responded well to session, attentive and willing to process with group. Identified current mental health win as following through with plans to restring her guitar. Pt brought her guitar in to group and described that an additional win would be sharing a song she wrote with the group as she has not played her music in front of anyone else in several years. Current stressor noted as ongoing physical health issues and pt reports plans to establish with a new PCP to address these concerns. Pt appeared to benefit from supportive feedback and encouragement provided by the group. Recommended continued IOP tx to continue to improve healthy self-care, promote mood stability, as well as prevent decompensation. Narrative Note: []
--- NOTE | 2022-05-31 10:10 | BH.SGPN.GN ---
Behaviors/Verbalizations/Mental Status: [] Client alert and oriented, casually dressed and groomed. Eye contact good. Motor activity appropriate. Speech within normal limits. Affect full, mood euthymic and energetic. Thoughts linear, logical, no signs of hallucinations or delusions. Client Response/Progress/Benefit: [] Client responded well to session AEB taking notes throughout and listening attentively to others. Client was attentive throughout group activity discussing famous individuals and how they overcame failure to be successful. Client helped group identify how fear of failure can impact mental health and relationships. Client made point to group how we put too much stock into what others think of us with asking group; Who and what determines if we fail. Group together identified how fear of failure leads to over-obsessing, not trying, and lack of confidence. Client participated in experiential activity, working with group members to problem solve. Appeared to benefit from increased knowledge of fear of failure. Will continue IOP tx to improve self-confidence, reduce distorted thinking patterns, and challenge thought patterns that lead to depression and anxiety. Narrative Note: []
--- NOTE | 2022-05-31 11:10 | BH.SGPN.GN ---
Behaviors/Verbalizations/Mental Status: [] Client alert and oriented, casually dressed and groomed. Eye contact good. Motor activity appropriate. Speech within normal limits. Affect full, mood euthymic and excitable. Thoughts linear, logical, no signs of hallucinations or delusions. Client Response/Progress/Benefit: [] Client responded well to session, engaged in the experiential activity and attentive throughout group processing. Client reported fear of failure has kept client from living life. Client completed fear of failure worksheet and was able to identify thoughts and behaviors that reinforce personal fear of failure including continual loss and self sabotage. Client participated in small group discussion regarding strategies to overcome fear of failure. Identified wanting to work on changing perspective to look at everyday as a learning opportunity. Client will continue IOP tx to increase overall functioning and increase emotional regulation skills. Narrative Note: []
--- NOTE | 2022-05-31 11:10 | BH.COMM ---
Communication Note - Communication with Client Communication Note: Met with client at this time to discuss how she has been feeling since starting Wellbutrin last week and how urinary retention has been since stopping Doxepin. Client reports her mood has improved with Wellbutrin, stating she is no longer having crying episodes and she has been enjoying playing music. Client brought in her guitar today to play in group. Client has chronic SI, and states this has not changed much since starting the Wellbutrin, but denies intent/plan at this time. Client states her urinary retention has not improved yet. Client states she has a lot of hesitancy with urination. When asked about symptoms of a UTI, client states I really don't know if I have any of that. Client states her sleep has decreased some since stopping the Doxepin, and states I really would like to be able to take that again if it isn't the cause of my retention. Discussed monitoring retention symptoms and possible UTI symptoms to be aware of. Discussed with client seeing PCP or urology for retention issue to rule out other causes. Information given to client about [facility] urology female doctor, Dr. Corona, per client's request. Client states she is going to attempt to get an appointment.
--- NOTE | 2022-06-02 09:00 | BH.SGPN.GN ---
Behaviors/Verbalizations/Mental Status: []Pt alert and oriented, neatly dressed and groomed. Eye contact fair. Motor activity appropriate. Speech within normal limits. Affect constricted, mood content. Thoughts linear, logical, no signs of hallucinations or delusions. Reviewed pt?s symptom tracker, no risk for suicidal ideation, plan, or intent as of 06/02/22 Client Response/Progress/Benefit: []Pt responded well to session, attentive and engaged. Pt reports feeling content this morning. Pt keeps her check-ins brief. Pt shared she has been playing the [employer] again which is something pt has done for years and makes pt feel connected. Pt also continues to come to IOP even though pt has urges to quit per her report. Pt reported a home health aide started yesterday to help with pt's aunt which has cleared up some time for pt to engage in self-care. Pt's did not report a stressor today, but pt continues to struggle with negative thinking patterns and negative core beliefs. Pt will continue IOP tx to increase self-compassion, further improve self-care, and reduce negative thinking. Narrative Note: []
--- NOTE | 2022-06-02 10:00 | BH.SGPN.GN ---
Behaviors/Verbalizations/Mental Status: [] Client alert and oriented, neatly dressed and groomed. Eye contact good. Motor activity appropriate. Speech within normal limits. Affect congruent, mood euthymic and anxious. Thoughts linear, logical, no signs of hallucinations or delusions. Client Response/Progress/Benefit: [] Client responded well to session, attentive during psychoeducation on SMART goals (Specific, Measurable, Achievable, Realistic, and Time-bound) and engaged in group experiential activity. Active during interactive discussion with peers in which they worked together to define what a goal is and the benefits of having goals. Group identified benefits as; giving a sense of purpose, improving motivation, and helping reduce negative mental health symptoms. Participated in interactive discussion in which group identified barriers to setting goals and following through with goals. Barriers included not feeling worthy, negative self-talk, time, and cognitive distortions such as all or nothing thinking . Benefited from increased awareness of benefits and strategies for goal-setting. Will continue in IOP tx to improve mood stability, prevent decompensation, and improve daily functioning. Narrative Note: []
--- NOTE | 2022-06-02 12:33 | BH.COMM_ITS ---
Communication Note - Communication with Client Communication Note: Pt left IOP tx prior to the end of group and did not alert staff of her departure. This therapist called to check-in with pt who indicated feeling stressed out and triggered by the topic of todays group, goal setting. Pt shared she struggles with believing she is allowed to set goals and do things for herself, noting I have spent my whole life trying to be invisible, this is really hard for me to do. Therapist normalized and discussed calming skills pt could engage in this afternoon. Pt shared her aunt has been given a nurse's aid which should allow pt more time to focus on caring for her own needs. Denies suicidal ideation, plan, or intent at this time. Is aware of and willing to use the crisis hotline or go to the nearest E.R. should she feel unable to maintain safety at any time. Pt is future oriented and reports plans to go to the [email or web address] on Sunday. Therapist will follow-up with psychiatry regarding pt ongoing concerns about medication impacting her mood.
--- NOTE | 2022-06-06 09:05 | BH.SGPN.GN ---
Behaviors/Verbalizations/Mental Status: []Pt alert and oriented, casually dressed and groomed. Eye contact good. Motor activity appropriate. Speech within normal limits. Affect flat, mood euthymic. Thoughts linear, logical, no signs of hallucinations or delusions. Reviewed pt?s symptom tracker, no risk for suicidal ideation, plan, or intent as of 06/06/22 Client Response/Progress/Benefit: []Pt responded well to session, highly engaged which is progress for pt. Pt reports feeling thankful this morning and shared that her mental health win is that she did not quit IOP tx. Pt shared in the past she had a history of quitting things before they could help pt. Pt stated she has worked on sitting with the uncomfortable while in IOP, especially with trying to challenge her negative thinking patterns. Pt shared she is also allowing herself to practice self-care which pt has not done before. Pt appeared to benefit from connecting with peers and reflecting on personal growth. Pt will continue IOP tx to promote use of healthy coping skills and further combat distortions. Narrative Note: []
--- NOTE | 2022-06-06 09:29 | BH.MDN ---
Multi-Disciplinary Note - Note 45-min Individual Time Started:: 08:15 Date: 06/06/22 Purpose of session/treatment goals addressed:: Purpose of session was to address treatment plan goal #1 obj 1 and Goal #2 obj 1. Began discharge planning. Eye Contact:: Good Motor Activity:: Appropriate Appearance:: Casual Speech:: Appropriate Mood:: Anxious, Dysthymic Affect:: Congruent Thoughts:: Linear, Logical, No evidence of hallucinations/delusions noted Staff Interventions:: thought challenging, motivational interviewing, psychoeducation on: - healthy sleep hygiene practices, discharge planning, strengths perspective, goal setting - reviewed and identified self-care goals for the week, other - aided pt in establishing outpatient psychiatry through [facility] Client Response:: Pt willing to meet with therapist prior to IOP group on this date. Reports getting a few hours of sleep last night after not sleeping the 2 nights prior to that. Shared feeling she still had energy during this time and is unsure as to why she could not sleep. Reviewed sleep hygiene practices with pt who connected with reducing blue light exposure prior to bed. Reports chronic sleep problems and expressed a desire to ?get back on my sleep med for 28 days?, as pt read that is how long it takes to create a habit. Noted continued urinary retention since discontinuing the doxepin and consulted with a urologist Sunday, who pt reported believes it may be her Effexor causing issues. Shared she was prescribed Flomax which has helped provide some relief and she is scheduled to have a scope done next week. Reports anxiety about this as pt believes it may be a trauma trigger. Reviewed skills she can use to calm her prior to the appointment, as well as self-care and calming skills for following the procedure. Identified playing her guitar, watching music videos on [employer], and laying in the hammock. Went on to review self-care goals from last session. Pt reports improvements in following a budget and discussed that her aunt has been aiding in holding pt accountable for not overspending. Pt shared she was able to secure a nurse?s aid for her aunt two days a week which will allow for pt to have more time for other things. 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 Shared self-care continues to be very difficult for her but she is trying to remind herself she cannot fully be of service to others if her needs are not cared for as well. Plans to spend the second day the nurse?s aid is there volunteering for her place of [employer]. Risks/Concerns:: Pt denies any active suicidal ideations, plan, or intent of as 05/30/22. Reports daily fleeting thoughts of ; however, denies any active plan or intent. Future oriented and protective factors noted. Is aware of and reports willingness to contact [employer], the Suicide prevention hotline, or go the local E.R. if unable to maintain safety. Progress Toward Goals/Plan:: Pt progress continues to be variable. Pt reports continued strides in completing small self-care tasks such as listening to music and curbing spending. Additionally, pt followed through with scheduling and attending a urology appointment which is something she has been avoiding. Reports however increased anxiety and frustration regarding ongoing urinary retention problems. Pt continues to struggle with accepting the need for psychiatric medication which has created some resistance to taking medications. Pt reports overall she has seen a reduction in severity of emotional swings and improvement in willingness to engage in hobbies she enjoys. Continues to struggle with CPTSD sx and significant negative core believes which impede tx progress. Will continue in IOP to maintain gains, promote application of healthy coping skills, and continue to stabilize mood for one more week as she transitions to new providers. Pt will then begin the aftercare program. Time Stopped:: 09:00
--- NOTE | 2022-06-06 10:15 | BH.SGPN.GN ---
Behaviors/Verbalizations/Mental Status: []Client alert and oriented, casually dressed and groomed. Eye contact good. Motor activity appropriate. Speech within normal limits. Affect congruent to topics being discussed, mood anxious and dysthymic. Thoughts linear, logical, no signs of hallucinations or delusions. Client Response/Progress/Benefit: []Pt engaged in session AEB listening attentively to others and providing insight to group discussion. Pt engaged in activity, able to connect how it can be uncomfortable when things are out of one?s own control. Pt worked with group to identify what things in life can be hard to accept. Group identified things hard to accept as: of a loved one, body image, loss of relationship, mental health diagnosis, other?s behaviors, and past decisions. Pt worked on identifying what personal things are hard to accept for herself, sharing her own flaws and need for help are things she struggles with accepting. Pt seemed to benefit from increased awareness of importance of acceptance. Pt to continue IOP to improve confidence, increase self-care, and prevent decompensation. Narrative Note: []
--- NOTE | 2022-06-06 11:15 | BH.SGPN.GN ---
Behaviors/Verbalizations/Mental Status: []Pt alert and oriented, casually dressed and groomed. Eye contact fair. Motor activity appropriate. Speech within normal limits. Affect congruent, mood euthymic. Thoughts linear, logical, no signs of hallucinations or delusions. Client Response/Progress/Benefit: []Pt responded well to session, engaged and providing examples. Pt engaged as group continued discussion on acceptance and how lack of acceptance can impact mental health. Pt and peers identified what makes acceptance challenging and pt completed a self-reflection exercise on what is hard to accept in pt's life. Pt accepted in discussion to process how not accepting can cause more harm. Group identified strategies to increase acceptance. Pt appeared to benefit from gaining insight and strategies to increase acceptance. Pt will continue IOP tx to increase consistent use of healthy coping skills, challenge distorted thoughts, and prevent decompensation.
--- NOTE | 2022-06-07 09:00 | BH.SGPN.GN ---
Behaviors/Verbalizations/Mental Status: []Eye contact is fair. Motor activity is appropriate. Appearance is casual. Speech is Appropriate. Mood is anxious. Affect is constricted. Thoughts are linear and logical. No evidence of psychosis. Reviewed daily check in sheet and denies any active SI, plan, or intent as of this date. Client Response/Progress/Benefit: []Pt responded well to session, attentive and willing to process with group. Pt reported mental health positive as watching a john talk last night about emotional first day. Patient stated it was really helpful to listen to a talk that reinforced a lot of things she has learned IOP. Patient reported additional mental positive as reflecting on the scale of dialectical thinking yesterday. Patient stated she is having a hard time utilizing that skill but is starting to see how it could be beneficial. Patient noted current stressor is not feeling regulated on her medications yet. Benefited from supportive feedback structure of the group. Pt will continue IOP tx to continue use of healthy coping skills, challenge distortions, and prevent decompensation.
--- NOTE | 2022-06-07 10:10 | BH.SGPN.GN ---
Behaviors/Verbalizations/Mental Status: []Pt alert and oriented, neatly dressed and groomed. Eye contact good. Motor activity appropriate. Speech within normal limits-sometimes has inappropriate laughter. Affect congruent, mood dysthymic. Thoughts linear, logical, no signs of hallucinations or delusions. Client Response/Progress/Benefit: []Pt was an active participant in group discussions and activity. Attentive during psychoeducation. Interactive discussion on the definition of perspective, how perspective is formed, and why perspective is important in treatment.? Pt along with peers also identified that perspective can either motivate and encourage treatment or be a barrier to receiving help. Pt shared her perspective today and most days tends to be more negative. Pt stated she does not like to use the word ?pessimistic? because it has a negative connotation, but pt admits she struggles with challenging her perspective which then creates a self-fulfilling prophecy. Pt is improving with utilizing more self-care practices. Will continue in IOP tx to promote mood stability, reinforce healthy coping skills, and further improve ability to challenge thoughts. Narrative Note: []
--- NOTE | 2022-06-07 11:15 | BH.SGPN.GN ---
Behaviors/Verbalizations/Mental Status: []Pt alert and oriented, casually dressed and groomed. Eye contact good. Motor activity appropriate. Speech within normal limits. Affect constricted, mood dysthymic and anxious. Thoughts linear, logical, no signs of hallucinations or delusions. Client Response/Progress/Benefit: []Pt was attentive and contributed to small group discussion. Pt completed strengths exploration worksheet. Pt able to acknowledge how these strengths are helping pt and can continue to help pt in mental health journey. Reflected on how pt?s love of learning, creativity, and artistic abilities have helped pt in the past and continue to help pt with mental health. Pt worked with group to identify strategies that can help increase utilization of personal strengths and how to challenge one?s perspective in general. Benefited from identifying personal strengths and strategies for enhancing use of identified strengths. Pt to continue IOP tx to prevent decompensation, improve daily functioning, and reduce negative thinking patterns. ? Narrative Note: []
--- NOTE | 2022-06-07 11:30 | PCM.BH.PN ---
Progress Note Progress Note: History of Present Illness/Interim History: The patient is a 56-year-old single female with a history of depression and PTSD who is seen in follow-up at the [facility] behavioral health IOP program. I last saw the patient 2 weeks ago and at that time Wellbutrin XL was added to the medication regimen and the doxepin was discontinued to see if it would improve her urinary retention. The patient states that the urinary retention remains and has not resolved. She has not had an ultrasound of the bladder or a scan yet but that she thinks she is having a cystoscopy soon but is uncertain. The patient states that the urologist said the Effexor possibly could be causing her urinary retention and she has decided she wants to wean off the medication. Since stopping the doxepin her sleep is decreased to about 4 hours a night. Her mood is improved and she feels she is less depressed now. She denies any self-harm by hitting her self now when she is taking care of her aunt. She feels that she has made some progress in challenging her perspectives and in caring for herself. She denies passive thoughts of and denies suicidal ideation. She denies also homicidal ideation, hallucinations or delusions. Current Psychiatric Medications: [] Effexor XR 75 mg p.o. daily (x4 weeks); melatonin for sleep and Lyrica for pain from her complex regional pain syndrome. Wellbutrin XL 150 mg p.o. every morning (x2 weeks). Mental Status Examination: [] Patient is a 56-year-old female who appears mildly disheveled and is casually dressed and groomed with fair hygiene. She has no psychomotor agitation or retardation. Eye contact is good and speech is normal rate and rhythm and fluent with no pressure. Patient is cooperative during the interview. Mood is mildly depressed. Affect is full and normal. Thought process is goal-directed and organized. Thought content: There is no evidence of passive thoughts of , suicidal ideation, homicidal ideation, plan for suicide, hallucinations or delusions. Reality testing is intact. Judgment is intact. Insight is fair to good. Impulsivity is moderate. Diagnoses: [] 1. Major depressive disorder, recurrent, severe without psychosis (resolving) 2. PTSD 3. Cluster B traits 4. Complex regional pain syndrome in left lower leg 5. Primary support and health issues Plan: [] The patient will continue the IOP program at [facility] as the structure, support, education and group therapy will hopefully prevent worsening of the patient's symptoms. She felt safe during the interview and if it anytime she does not feel safe she will let us know or go to the emergency room. The risk, options, possible complications and side effects of the medications were again discussed with the patient and she understands and accepts these. The patient agrees to wean off of her Effexor XR and see if the urinary retention and the prior numbness she felt while playing music resolves. She will decrease to 37.5 mg p.o. daily for 1 week and then stop the medication. She will continue her Wellbutrin XL as prescribed. She will restart doxepin 10 mg p.o. nightly as needed for sleep. She will continue to follow-up with her outpatient providers and I will see the patient in follow-up in 2 weeks.
--- NOTE | 2022-06-09 09:00 | BH.SGPN.GN ---
Behaviors/Verbalizations/Mental Status: [] Eye contact is good. Motor activity is appropriate. Appearance is casual. Speech is Appropriate. Mood is anxious. Affect is congruent. Thoughts are linear and logical. No evidence of psychosis. Reviewed daily check in sheet and no reports of suicidal ideations or intent. Client Response/Progress/Benefit: [] Pt participated at times during group discussions. Attentive. States ? I?m integrating back into society?. She is leaving her house more often ? I got out yesterday? which has improved mood. Reports being more hopeful. She shared stressors and struggles as well. The group provided support, feedback, and encouragement which was beneficial. Will continue in IOP to maintain safety, improve functioning, and increase healthy coping skills. Narrative Note: []
--- NOTE | 2022-06-09 10:05 | BH.SGPN.GN ---
Behaviors/Verbalizations/Mental Status: []Pt alert and oriented, casually dressed and groomed. Eye contact good. Motor activity appropriate. Speech within normal limits. Affect congruent, mood euthymic. Thoughts linear, logical, no signs of hallucinations or delusions. Client Response/Progress/Benefit: []Pt participated in group discussions. Active participant in experiential activity. Attentive during psychoeducation. Attentive as peers shared types of social supports which included; family, friends, PCP, mental health providers, support groups, pets, ourselves, community classes, etc. Attentive as group identified mental health benefits of social support but pt and peers also shared sometimes it seems like they cannot access support. Contributed as peers worked together to identify obstacles to utilizing support. Pt identified personal barriers as ?putting all my eggs in one basket? and difficulty being around healthy support due to negative thoughts of self. Benefited from increased awareness of mental health benefits of social support and obstacles that prevent one from utilizing support. Will continue IOP tx to promote use of self-care strategies, combat distortions, and improve mood stability. Narrative Note: []
--- NOTE | 2022-06-09 11:10 | BH.SGPN.GN ---
Behaviors/Verbalizations/Mental Status: []Client alert and oriented, casually dressed and groomed. Eye contact good. Motor activity appropriate. Speech within normal limits. Affect congruent, mood euthymic and anxious. Thoughts linear, logical, no signs of hallucinations or delusions. Client Response/Progress/Benefit: []Client was an active participant throughout AEB contributing to discussion, providing personal examples, and taking notes. Client provided input during discussion on the types of support our supports can provide. Client able to identify current support system and barriers that get in the way of using supports by drawing out their own support net. Client reported after identifying what type of supports they receive; they gained awareness that they could benefit from more social supports. Client identified steps to achieve this by continuing to practice healthy communication skills and boundaries with what she shares with others. Client seemed to benefit from identifying the type of support client needs to work on improving. Client recommended to continue IOP tx to increase healthy coping, reduce anxiety and negative core beliefs, and increase overall functioning. Narrative Note: []
== END 2022-06-11 23:59 ==
LOC: BHIOP 08:20
PROVIDERS: PCP Family Medicine; Referring Provider Psychiatry & Neurology Psychiatry; Visit Provider Psychiatry & Neurology Psychiatry
DX: F32.2 Major depressive disorder, single episode, severe without psychotic features (principal); F43.10 Post-traumatic stress disorder, unspecified
CPT/HCPCS: S9480; 90832; 90834; 90837; 90853

== ENCOUNTER 2022-06-12 08:10 | Outpatient (RCR) | payer OTHER, SELFPAY ==
[2022-06-12 00:46] VITALS: BP 164/71; PULSE 60
--- NOTE | 2022-06-13 09:05 | BH.SGPN.GN ---
Behaviors/Verbalizations/Mental Status: []Pt alert and oriented, casually dressed and groomed. Eye contact fair. Motor activity appropriate. Speech within normal limits. Affect flat, mood depressed. Thoughts linear, logical, no signs of hallucinations or delusions. Reviewed pt?s symptom tracker, no risk for suicidal ideation, plan, or intent as of 06/13/22 Client Response/Progress/Benefit: []pt was a passive participant in group today. Pt declined to share during her turn for check-in, but she appeared to be actively listening to peers. Pt has been sharing in process group, but pt declining to share could be due to the large group today. IOP staff will continue to encourage pt to share more in large group sessions. Pt will continue IOP tx to promote use of healthy coping skills, combat distortions, and improve mood stability. Narrative Note: []
--- NOTE | 2022-06-13 10:10 | BH.SGPN.GN ---
Behaviors/Verbalizations/Mental Status: []Pt alert and oriented, casually dressed and groomed. Eye contact fair. Motor activity appropriate. Speech within normal limits. Affect constricted, mood depressed and anxious. Thoughts linear, logical, no signs of hallucinations or delusions. Client Response/Progress/Benefit: []Pt receptive to session AEB contributing to discussion, as well listening attentively to others, and taking notes. Worked with group to brainstorm the positive and negative aspects of stress on physical and mental health. Group did well to identify the benefits of stress as well as the impact of distress on performance, relationships, and mental health. Pt chose to not share her top stressors with the group. Pt seemed to benefit from increased awareness of current stressors and impact stress has on mental health. Recommended to continue IOP tx to decrease negative thinking, increase use of healthy coping, and prevent decompensation.
--- NOTE | 2022-06-19 09:05 | BH.SGPN.GN ---
Behaviors/Verbalizations/Mental Status: [] Eye contact is good. Motor activity is appropriate. Appearance is casual. Speech is Appropriate. Mood is anxious. Affect is congruent. Thoughts are linear and logical. No evidence of psychosis Client Response/Progress/Benefit: [] Pt participated at times during the group discussion. Attentive. Shared with the group that she is graduating from the program and is very appreciative of the time spent in IOP and the skills that she has learned. Increased self-care. She has arranged for a home health aide to come to the house for a couple days so she can have some respite from her caregiver role which has been beneficial for her mental health as well. Benefited from group support, encouragement, and feedback. Will continue in IOP to maintain gains. Narrative Note: []
--- NOTE | 2022-06-19 10:15 | BH.SGPN.GN ---
Behaviors/Verbalizations/Mental Status: []Pt alert and oriented, casually dressed and groomed. Eye contact good. Motor activity appropriate. Speech within normal limits. Affect congruent-tearful at times, mood anxious. Thoughts linear, logical, no signs of hallucinations or delusions. Client Response/Progress/Benefit: []?Pt was an active participant in group discussions. Attentive during psychoeducation. Contributed during interactive discussions in which peers attempted to define crisis. Pt identified several examples of potential crisis. Group also worked together to identify unhealthy responses to crisis which included; isolation, self-harm, overuse of distraction, avoidance, and lashing out. Pt identified personal warning signs as sleeping less than usual, racing thoughts, and rapid mood changes. Benefited from increased understanding of crisis and awareness of personal responses to crisis. Pt will continue IOP tx to reinforce healthy coping skills and further promote mood stability. Narrative Note: []
--- NOTE | 2022-06-19 11:15 | BH.SGPN.GN ---
Behaviors/Verbalizations/Mental Status: []Client alert and oriented, casually dressed and groomed. Eye contact fair. Motor activity appropriate. Speech within normal limits. Affect congruent. Mood euthymic. Thoughts linear, logical, no signs of hallucinations or delusions. Client Response/Progress/Benefit: []Client engaged throughout group session AEB providing contributions to discussion and working within the small groups. At times however, client struggled with appearing off-topic or making sarcastic remarks, continues to struggle at times with believing mental health tx can help. Client identified their personal warning signs for crisis and gained further awareness of earliest warning signs. Client created a crisis action plan to help client better manage personal crisis warning signs. Client shared an action plan for their warning sign of isolation which included: not engaging in high risk behaviors and opposite action. Client appeared to benefit from creating a crisis action plan and increasing self-awareness. Client to continue IOP tx to continue use of healthy coping skills, reduce depressive sx, and prevent decompensation. Narrative Note: []
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
--- NOTE | 2022-06-21 10:10 | BH.SGPN.GN ---
Behaviors/Verbalizations/Mental Status: [] Eye contact is good. Motor activity is appropriate. Appearance is casual. Speech is Appropriate. Mood is depressed. Affect is congruent. Thoughts are linear and logical. No evidence of psychosis. Client Response/Progress/Benefit: [] Pt was an active participant in group discussions. Attentive during psychoeducation on the 4 communication styles (Passive, Passive-Aggressive, Aggressive, and Assertive) and the obstacles to effective communication. Contributed during interactive discussion on the benefits of communicating effectively which included; having one's needs met, helping others get their needs met, building connection with others, decreases stress and uncertainty, improved relationships, increased trust, and increased understanding of others. Worked well in small group in which pt and peers identified the benefits and disadvantages to the different communication styles. Benefited from increased understanding of communication styles and how these can impact effective communication. Will continue in IOP to prevent decompensation, maintain safety, and improve functioning. Narrative Note: []
--- NOTE | 2022-06-21 11:10 | BH.SGPN.GN ---
Behaviors/Verbalizations/Mental Status: [] Client alert and oriented, casually dressed and groomed. Eye contact fair. Motor activity appropriate. Speech within normal limits. Affect congruent, mood euthymic and slightly anxious. Thoughts linear, logical, no signs of hallucinations or delusions Client Response/Progress/Benefit: [] Client responded well to session AEB client listening attentively to others and providing input during group discussion. Client did well in the activity to be assertive and ask for feedback. Recognizes if group wasn't assertive in activity, they wouldn't have been successful. Client reflected she felt like she was being bossy, but realizes she is not used to be assertive. Discussed with group communication strategies used to make activity successful. Attentive during psychoeducation on interpersonal DBT skill SHARON. Client seemed to benefit from increasing awareness of healthy strategies to improve communication. Will continue IOP tx to increase confidence, challenge distorted/negative thoughts, and prevent decompensation.
--- NOTE | 2022-06-21 13:48 | BH.IGGP_ITS ---
Aftercare Plan - Demographics Treatment End Date:: 06/21/22 Psychiatrist:: Josefina Yee Psychiatrist Office #:: [phone] [facility]/IOP Therapist:: Alma Carvalho Therapist Phone #:: [phone] - Plan Details Progress/Aftercare Plan Details:: Pt has responded well to treatment as evidenced by Pt consistently attending IOP sessions and her self-report of improved insight, ability to challenge her perspective, and increase willingness to engage in self-care since admission. Pt was always attentive and receptive to learning during group and individual sessions. Pt has struggled with feeling she deserves self-care or to actively apply healthy coping skills; however, she has made significant progress in her ability to challenge this and allow more active skill application outside of IOP. Pt reports her mood is improved, though continues to fluctuate, and she is functioning better than she was several months ago. Pt has increased her ability to manage her stress, triggers, and set boundaries within her interpersonal relationships. Strategies for Success:: 1. Opposite action! Continue to break that cycle of isolation and depression by acting differently than your emotion wants you to. 2. Remember to ride the wave. Slow down and PAUSE. Delay, distract, decide. 3. self-care! You deserve to take time for you and you also deserve to face the not so fun self-care 4. Self-compassion! You are human and you will make mistakes?BUT that doesn?t mean you are a failure or not good enough. Give yourself credit for all the wonderful things you do. 5. Self-advocacy! You deserve happiness, peace, and respect like ANYONE else. 6. Practicing deep breathing, calming self-talk, and grounding 7. Practice positive self-talk and keep track of your wins. 8. Remember progress isn?t linear! You may have a setback or bump in the road, but that doesn?t mean you?ve lost all progress. 9. Keep aware of pitfalls and refer back to your binder/notes when needed 10. Continue to practice assertive communication- you are ALLOWED to set boundaries!. - Appointments Appointments/Referrals to Other Services:: Pt will continue with outpatient counseling through her congregational and psychiatry services at [facility]. Additionally, recommended to continue to follow-up with her medical team for ongoing physical health concerns. - Medications Home Medications: Home Medications melatonin 5 mg tablet 15 mg PO QHS 05/03/22 pregabalin 150 mg capsule (Lyrica) 450 mg PO QHS 05/03/22 bupropion HCl 150 mg 24 hr tablet, extended release (Wellbutrin XL) 150 mg PO DAILY 30 days #30 tabs 06/07/22 doxepin 10 mg capsule 10 mg PO QHS #30 caps 06/07/22
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
== END 2022-06-21 12:27 | disposition home or self-care (01) ==
LOC: BHIOP 08:10
PROVIDERS: PCP Family Medicine; Referring Provider Psychiatry & Neurology Psychiatry; Visit Provider Psychiatry & Neurology Psychiatry
DX: F33.2 Major depressive disorder, recurrent severe without psychotic features (principal); F43.10 Post-traumatic stress disorder, unspecified
CPT/HCPCS: S9480; 90832; 90853